=== PATIENT | male | born 1990 | race Caucasian/White ===

== ENCOUNTER → 2019-04-25 | Outpatient (REF) | payer OTHER ==
[2019-04-25 18:53] LABS: APPEARANCE, URINE CLEAR (CLEAR); BACTERIA, URINE AUTO NEGATIVE (NEGATIVE); BILIRUBIN, URINE AUTO NEGATIVE (NEGATIVE); BLOOD, URINE BLOOD NEGATIVE (NEGATIVE); COLOR, URINE STRAW (YELLOW); GLUCOSE, URINE (UA) AUTO NEGATIVE (NEGATIVE); KETONE, URINE AUTO NEGATIVE (NEGATIVE); LEUKOCYTE ESTERASE, URINE AUTO NEGATIVE (NEGATIVE); NITRITE, URINE AUTO NEGATIVE (NEGATIVE); PROTEIN, URINE AUTO NEGATIVE (NEGATIVE); RBC, URINE AUTO 1 /HPF (0-3); SQUAMOUS EPITHELIAL CELL UR AU 0 /HPF (0-6); UROBILINOGEN, URINE AUTO 0.2 mg/dL (0.0-2.0); WBC, URINE AUTO 0 /HPF (0-3)
== END ==
LOC: M SMT 17:21
PROVIDERS: ATTEND Nurse Practitioner Women's Health
DX: N50.819 Testicular pain, unspecified (principal)

== ENCOUNTER 2023-01-23 10:15 | Day surgery (SDC) | payer BC ==
[~2023-01-23] VITALS: Ht 182.9 cm; Wt 114.9 kg
[~2023-01-23 10:15] MED LIST: LEVO75TA4 PO; TEST200I14 IM; ceFAZolin SOD 2 GM in IV 1 EA IV ONE
[2023-01-23] MEDS ORDERED: LIDOCAINE 2% MDV 20ML VIAL As Ordered ONE (10:17)
[2023-01-23] MEDS ORDERED: ONDANSETRON 4MG 2ML VIAL As Ordered ONE (10:27)
[2023-01-23] MEDS ORDERED: propofoL 200 MG/20 ML VIAL As Ordered ONE ×2 (10:27→12:36)
[2023-01-23] MEDS ORDERED: fentaNYL 250 MCG/5 ML INJECTION As Ordered ONE (10:27)
[2023-01-23] MEDS ORDERED: LIDOCAINE 2% 100MG/5ML SDV (FOR ANES.) As Ordered ONE (10:27)
[2023-01-23] MEDS ORDERED: MIDAZOLAM INJ 2MG/2ML VIAL As Ordered ONE (10:27)
[2023-01-23] MEDS ORDERED: LR 1,000 ML IV SCH ×2 (10:35→13:15)
[2023-01-23] MEDS ORDERED: ACETAMINOPHEN 1000MG 100ML IV BAG As Ordered ONE (10:38)
[2023-01-23] MEDS ORDERED: ePHEDrine SULFATE 25 MG/5 ML(5MG/ML) SYRINGE As Ordered ONE (13:08)
[2023-01-23] MEDS ORDERED: ONDANSETRON 4MG 2ML VIAL IV PRN (13:15)
[2023-01-23] MEDS ORDERED: oxyCODONE 5MG TAB PO PRN (13:15)
[2023-01-23] MEDS ORDERED: fentaNYL 100 MCG/2 ML INJECTION IV PRN (13:15)
[2023-01-23] MEDS ORDERED: HYDROMORPHONE HCL 0.5 MG/ 0.5 ML SYRINGE IV PRN (13:15)
[2023-01-23] MEDS ORDERED: HYDR-3713 PO (13:37)
[2023-01-23] MEDS ORDERED: CEPH500C PO (13:37)
[2023-01-23 14:25] VITALS: BP 142/65; TEMP 98.8; O2SAT 96
== END 2023-01-23 14:50 | disposition home or self-care (01) ==
LOC: M SDC 10:15
PROVIDERS: ATTEND Urology
DX: N43.3 Hydrocele, unspecified (principal); E03.9 Hypothyroidism, unspecified; Z79.899 Other long term (current) drug therapy
CPT/HCPCS: 55040; 88302; J0131; J0665; J0690; J1100; J2250; J2405; J3010

== ENCOUNTER → 2023-01-30 | Outpatient (CLI) | payer BC ==
[~2023-01-30] MED LIST changes: +CEPH500C PO; +CEPH500T PO; +HYDR-3713 PO; -ceFAZolin SOD 2 GM in IV 1 EA IV ONE
[2023-01-30 15:49] LABS: HEMATOCRIT 49.1 % (42.0-52.0); HEMOGLOBIN 15.9 g/dl (13.5-17.5); MEAN CORPUSCULAR HEMOGLOBIN 30.2 pg (27.0-33.0); MEAN CORPUSCULAR HGB CONC 32.4 g/dl (32.0-36.5); MEAN CORPUSCULAR VOLUME 93.2 fl (80.0-96.0); PLATELET COUNT, AUTOMATED 385 10^3/uL (150-450); RED BLOOD COUNT 5.27 10^6/uL (4.30-6.10); WHITE BLOOD COUNT 11.5 10^3/uL (4.0-10.0)
[2023-01-30 15:52] LABS: ALBUMIN 3.6 G/DL (3.2-5.2); ALKALINE PHOSPHATASE 39 U/L (46-116); ALT/SGPT 89 U/L (7.0-40); AST/SGOT 68 U/L (<34); BILIRUBIN,TOTAL 0.8 MG/DL (0.3-1.2); BLOOD UREA NITROGEN 17 MG/DL (9-23); CALCIUM LEVEL 9.5 MG/DL (8.5-10.1); CARBON DIOXIDE LEVEL 29 MMOL/L (20-31); CHLORIDE LEVEL 102 MMOL/L (98-107); CREATININE FOR GFR 0.97 MG/DL (0.70-1.30); GLOMERULAR FILTRATION RATE > 60.0 (>60); GLUCOSE, FASTING 95 MG/DL (60-100); POTASSIUM SERUM 5.2 MMOL/L (3.5-5.1); SODIUM LEVEL 138 MMOL/L (136-145)
== END ==
LOC: M PLALAB 12:06
PROVIDERS: ATTEND Urology
DX: S30.22XA Contusion of scrotum and testes, initial encounter (principal); W18.30XA Fall on same level, unspecified, initial encounter; Y92.009 Unspecified place in unspecified non-institutional (private) residence as the place of occurrence of the external cause

== ENCOUNTER 2023-02-02 10:54 | Day surgery (SDC) | payer BC ==
[~2023-02-02] VITALS: Ht 182.9 cm; Wt 114.3 kg
[~2023-02-02 10:54] MED LIST changes: -CEPH500T PO
[2023-02-02] MEDS ORDERED: LR 1,000 ML IV SCH ×2 (11:55→13:40)
[2023-02-02] MEDS ORDERED: ceFAZolin SOD 2 GM in IV 1 EA IV ONE (12:30)
[2023-02-02] MEDS ORDERED: LIDOCAINE 1% SDV 30ML VIAL As Ordered ONE (12:33)
[2023-02-02] MEDS ORDERED: BACITRACIN OINTMENT 30GM TUBE As Ordered ONE (12:33)
[2023-02-02] MEDS ORDERED: dexmedeTOMIDine (4MCG/ML)200MCG/50ML BTL (PRECEDEX) As Ordered ONE (12:56)
[2023-02-02] MEDS ORDERED: MIDAZOLAM INJ 2MG/2ML VIAL As Ordered ONE (12:56)
[2023-02-02] MEDS ORDERED: LIDOCAINE 2% 100MG/5ML SDV (FOR ANES.) As Ordered ONE (12:56)
[2023-02-02] MEDS ORDERED: ONDANSETRON 4MG 2ML VIAL As Ordered ONE (12:56)
[2023-02-02] MEDS ORDERED: propofoL 200 MG/20 ML VIAL As Ordered ONE (12:56)
[2023-02-02] MEDS ORDERED: fentaNYL 100 MCG/2 ML INJECTION As Ordered ONE (12:56)
[2023-02-02] MEDS ORDERED: ACETAMINOPHEN 1000MG 100ML IV BAG As Ordered ONE (13:03)
[2023-02-02] MEDS ORDERED: ceFAZolin 1GM VIAL As Ordered ONE (13:05)
[2023-02-02] MEDS ORDERED: oxyCODONE 5MG TAB PO PRN (13:40)
[2023-02-02] MEDS ORDERED: ONDANSETRON 4MG 2ML VIAL IV PRN (13:40)
[2023-02-02] MEDS ORDERED: HYDROMORPHONE HCL 0.5 MG/ 0.5 ML SYRINGE IV PRN (13:40)
[2023-02-02] MEDS ORDERED: CEPH500T PO (13:47)
[2023-02-02] MEDS: fentaNYL 100 MCG/2 ML INJECTION IV PRN ×2 (14:14→14:19)
[2023-02-02 15:30] VITALS: BP 148/72; TEMP 98.6; O2SAT 98
[2023-02-03] MEDS ORDERED: UNRESOLVED CLARIFICATION ENTRY XX SCH (00:01)
== END 2023-02-02 15:42 | disposition home or self-care (01) ==
LOC: M SDC 10:54
PROVIDERS: ATTEND Urology
DX: S30.22XA Contusion of scrotum and testes, initial encounter (principal); X58.XXXA Exposure to other specified factors, initial encounter; Y92.89 Other specified places as the place of occurrence of the external cause; Y93.9 Activity, unspecified; Y99.9 Unspecified external cause status
CPT/HCPCS: 54640; 54700; 87070; 87075; 87076; 87077; 87186; 87205; J0131; J0665; J0690; J1100; J2250; J2405; J3010